=== PATIENT | female | born 1950 | race Caucasian/White ===

== ENCOUNTER 2017-08-29 16:43 | Emergency (ER) | payer MEDICARE, OTHER ==
[~2017-08-29] VITALS: Ht 166.4 cm; Wt 125.0 kg
[2017-08-29 16:56] VITALS: BP 154/90
[2017-08-29] MEDS ORDERED: HYDR-565 PO (18:48)
[2017-08-29] MEDS ORDERED: SULF1TAB49 PO (18:48)
== END 2017-08-29 18:58 | disposition home or self-care (01) ==
LOC: ER 16:44
DX: I80.8 Phlebitis and thrombophlebitis of other sites (principal); I83.92 Asymptomatic varicose veins of left lower extremity; I10 Essential (primary) hypertension; Z79.899 Other long term (current) drug therapy
CPT/HCPCS: 93971; 99284